=== PATIENT | male | born 1995 | race Caucasian/White ===

== ENCOUNTER 2024-11-27 13:20 | Outpatient (AMB) | payer OTHER, SELFPAY ==
--- NOTE | 2024-11-27 13:21 | A.OFFVIS_ITS ---
Intake Visit Reasons: RLQ pain Intake Note: Patient referred by pcp Dr. Aguilar for RLQ pain. Present for 1m Patient c/o: denies nausea, vomiting, diarrhea. On and off pain. ABD CT: 10-13-2024 Truck Jumper Required: No HPI Comments Details: Patient presents for evaluation of a 1 month history of right lower quadrant abdominal wall pain he does strenuous activities and thinks this aggravates his symptoms. He is otherwise tolerating a diet. He is having regular bowel habits. 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 No other GI issues or complaints. Patient was found to have a CT scan was essentially demonstrated an umbilical hernia which is not the site of his symptoms and otherwise within normal limits. Chart was reviewed and patient evaluated [facility] Medical History (Updated 11/24/24 @ 11:37 by DEE Kaur) Migraine Androgenic alopecia Asthma Physical Exam GI Other: Patient was examined both supine and standing with Valsalva. Bilateral groin exam negative. Both testicles intrascrotal. Patient was a small right groin incision were is an infant he had undescended testicle repaired. No evidence of any inguinal hernias. Small reducible umbilical hernia. Corpulent abdomen. No evidence of any guarding, rebound, or rigidity. Assessment & Plan Assessment & Plan (1) Abdominal wall pain in right lower quadrant: Code(s): R10.31 - Right lower quadrant pain Category: Surgical Plan At present, patient was reassured that no obvious surgical pathology was demonstrated. CT scan and clinically no obvious hernias demonstrated. The patient most probably has a muscle strain or pull. Suggestions regarding management including Tylenol or Motrin, ice or heat, avoiding any aggravating activities, and patient will otherwise follow-up as needed. All questions answered. Coding Level of Care Code New Pt Level 4 (63060) Diagnoses Abdominal wall pain in right lower quadrant R10.31
--- OUTSIDE RECORDS SUMMARY | 2024-11-27 15:04 | XMS_ITS | Clinical Summary ---
Author Organization [address] Address [address] [place] [phone] Phone Care Team Providers Care Cutting Pressman Name Role Phone MarcusHerman arredondo Primary Care Provider [phone] Allergies No known active allergies Encounters Date Type Department Care Team Description 10/13/2024 1:40 PM EST - 10/13/2024 11:59 PM EST Hospital Encounter [facility] CT Scan [address] [place] [address] Right lower quadrant pain; Frequency of micturition Discharge Disposition: Home or Self Care from Last 3 Months Social History Tobacco Use Types Packs/Day Years Used Date Smoking Tobacco: Never Assessed Sex and Gender Information Value Date Recorded Sex Assigned at Not on file Legal Sex Male 7:10 PM EST Gender Identity Not on file Sexual Orientation Not on file Plan of Treatment Health Maintenance Due Date Last Done Comments DTaP,Tdap,and Td Vaccines (1 - Tdap) 2015 Hepatitis B Vaccines (1 of 3 - 19+ 3-dose series) 2015 Pneumococcal Vaccine: Pediat rics (0 to 5 Years) and At-Risk Patients (6 to 64 Years) (1 of 2 - PCV) 2015 COVID-19 Vaccine ( - 2023-2 5 season) 2024 Influenza Vaccine (#1) 2024 Depression Screening 10/09/2024 HIV Screening 10/09/2024 Hepatitis C Screening 10/09/2024 Social Influencers of Health Screening 10/09/2024 Cholesterol Screening (Lipid Panel) 10/09/2029 10/09/2024 HIB Vaccines Aged Out No longer eligi ble based on patient's age to complete this topic HPV Vaccines Aged Out No longer eligi ble based on patient's age to complete this topic Hepatitis A Vaccines Aged Out No long er eligible based on patient's age to complete this topic IPV Vaccines Aged Out No longer eligi ble based on patient's age to complete this topic MMR Vaccines Aged Out No longer eligi ble based on patient's age to complete this topic Meningococcal ACWY Vaccine Aged Out N o longer eligible based on patient's age to complete this topic Meningococcal B Vacine Aged Out No lo nger eligible based on patient's age to complete this topic RSV Immunization Patients Un gino 20 months Aged Out No longer eligible b ased on patient's age to complete this topic Varicella Vaccines Aged Out No longer eligible based on patient's age to complete this topic Procedures Procedure Name Priority Date/Time Associated Diagnosis Comments COMPREHENSIVE METABOLIC PANEL Routine 11/16/2024 2:17 PM EST Elevated LFTs CT ABDOMEN PELVIS W CONTRAST STAT 10/13/2024 1:53 PM EST Right lower quadrant pain Frequency of micturition URINALYSIS WITH REFLEX MICROSCOPIC Routine 10/09/2024 10:46 AM EST Urinary frequency Screening for thyroid disorder Screening for ischemic heart disease Impaired fasting glucose CBC WITH AUTO DIFFERENTIAL Routine 10/09/2024 10:46 AM EST Urinary frequency Screening for thyroid disorder Screening for ischemic heart disease Impaired fasting glucose URINALYSIS WITH REFLEX MICROSCOPIC Routine 10/09/2024 10:46 AM EST Urinary frequency Screening for thyroid disorder Screening for ischemic heart disease Impaired fasting glucose HEMOGLOBIN A1C Routine 10/09/2024 10:46 AM EST Urinary frequency Screening for thyroid disorder Screening for ischemic heart disease Impaired fasting glucose COMPREHENSIVE METABOLIC PANEL Routine 10/09/2024 10:46 AM EST Urinary frequency Screening for thyroid disorder Screening for ischemic heart disease Impaired fasting glucose CBC AND DIFFERENTIAL Routine 10/09/2024 10:46 AM EST Urinary frequency Screening for thyroid disorder Screening for ischemic heart disease Impaired fasting glucose THYROID STIMULATING HORMONE Routine 10/09/2024 10:46 AM EST Urinary frequency Screening for thyroid disorder Screening for ischemic heart disease Impaired fasting glucose LIPID PANEL WITH REFLEX TO DIRECT LDL Routine 10/09/2024 10:46 AM EST Urinary frequency Screening for thyroid disorder Screening for ischemic heart disease Impaired fasting glucose CHLAMYDIA TRACHOMATIS AND NEISSERIA GONORRHOEAE PCR Routine 10/09/2024 10:46 AM EST Urinary frequency Screening for thyroid disorder Screening for ischemic heart disease Impaired fasting glucose CULTURE URINE Routine 10/09/2024 10:46 AM EST Urinary frequency Screening for thyroid disorder Screening for ischemic heart disease Impaired fasting glucose from Last 3 Months Results * (ABNORMAL) Comprehensive metabolic panel (11/16/2024 2:17 PM EST) Only the most recent of2 resultswithin the time period is included. Sodium 139 133 - 145 mmol/L LAB CHEMISTRY METHOD 11/16/2024 8:03 PM [facility] Potassium 4.1 3.5 - 5.5 mmol/L LAB CHEMISTRY METHOD 11/16/2024 8:03 PM [facility] Chloride 106 96 - 110 mmol/L LAB CHEMISTRY METHOD 11/16/2024 8:03 PM [facility] CO2 25 21 - 32 mmol/L LAB CHEMISTRY METHOD 11/16/2024 8:03 PM [facility] Anion Gap 8 3 - 11 LAB CHEMISTRY METHOD 11/16/2024 8:03 PM [facility] Glucose 94 70 - 100 mg/dL LAB CHEMISTRY METHOD 11/16/2024 8:03 PM [facility] BUN 15 5 - 25 mg/dL LAB CHEMISTRY METHOD 11/16/2024 8:03 PM [facility] Creatinine 1.11 0.70 - 1.30 mg/dL LAB CHEMISTRY METHOD 11/16/2024 8:03 PM [facility] eGFR 93 >=60 mL/min/1. 73m2 LAB CHEMISTRY METHOD 11/16/2024 8:03 PM [facility] Comment:Calculation based on the??Chronic Kidney Disease Epidemiology Collaboration (CKD-EPI) equation refit??without adjustment for race. BUN/Creatinine Ratio 13.5 LAB CHEMISTRY METHOD 11/16/2024 8:03 PM [facility] Calcium 9.7 8.5 - 10.5 mg/dL LAB CHEMISTRY METHOD 11/16/2024 8:03 PM [facility] AST (SGOT) 29 10 - 42 unit/L LAB CHEMISTRY METHOD 11/16/2024 8:03 PM [facility] ALT (SGPT) 63(H) 10 - 60 unit/L LAB CHEMISTRY METHOD 11/16/2024 8:03 PM [facility] Alkaline Phosphatase 84 42 - 121 unit/L LAB CHEMISTRY METHOD 11/16/2024 8:03 PM [facility] Total Protein 7.8 6.0 - 8.0 g/dL LAB CHEMISTRY METHOD 11/16/2024 8:03 PM [facility] Albumin 4.2 3.2 - 5.0 g/dL LAB CHEMISTRY METHOD 11/16/2024 8:03 PM [facility] Total Bilirubin 0.4 0.0 - 1.4 mg/dL LAB CHEMISTRY METHOD 11/16/2024 8:03 PM [facility] Blood Venous blood specimen / Unknown Venipuncture / Unknown 11/16/2024 2:17 PM EST 11/16/2024 2:17 PM EST us Karena Lan [employer] LAB BLOOD ORDERABLES Fi nal Result [facility] [address] [place] [address], [place] [phone] * CT Abdomen Pelvis w Contrast (10/13/2024 1:53 PM EST) Anatomical Region Laterality Modality Body Computed Tomogra phy 10/13/2024 2:17 PM EST Impressions 10/13/2024 2:21 PM EST 1. ??Normal appendix. ??No acute findings in the abdomen and pelvis. 2. ??Hepatic steatosis. -------- FINAL REPORT -------- Dictated By: Jaime Gilbert Dictated Date: 10/13/2024 14:17 ET Assigned Physician: Jaime Gilbert Reviewed and Electronically Signed By: Jaime Gilbert Signed Date: 10/13/2024 14:21 ET Workstation ID: [id number] Transcribed By: Self Edit Transcribed Date: 10/13/2024 14:17 ET Narrative 10/13/2024 2:21 PM EST PROCEDURE: Contrast enhanced CT of the abdomen and pelvis. ?? HISTORY: RLQ PAIN R/O APPENDICITIS. COMPARISON: TECHNIQUE: Contrast-enhanced CT of the abdomen and pelvis with coronal and sagittal reformats. IV contrast dose: 90 mL ISOVUE-370. Dose length product: ??2319 mGy-cm. FINDINGS: Lung bases: Calcified granuloma in the lateral periphery of the right lower lobe. Cardiac: Normal. Liver: Diffusely low in attenuation consistent with steatosis. ??There is sparing along the gallbladder fossa. ??No focal lesion. ??Portal veins are patent. Biliary: Normal gallbladder and biliary tree. Pancreas: Normal. Spleen: Normal. Adrenal glands: Normal. Kidneys: Normal. ??Normal appearance of the ureters. Retroperitoneum: No mass or adenopathy. Abdominal vasculature: Minimal atherosclerotic calcification. Bowel/mesentery: No obstruction or adenopathy. ??No mass or ascites. ??Normal appendix. Abdominal wall: Minimal fat-containing paraumbilical hernia.. Pelvic nodes: No adenopathy. Pelvic organs: Normal. Bones: Mild degenerative changes of the spine. Procedure Note Jaime Gilbert MD - 10/13/2024 PROCEDURE: Contrast enhanced CT of the abdomen and pelvis. HISTORY: RLQ PAIN R/O APPENDICITIS. COMPARISON: TECHNIQUE: Contrast-enhanced CT of the abdomen and pelvis with coronal andsagittal reformats. IV contrast dose: 90 mL ISOVUE-370. Dose length product: 2319 mGy-cm. FINDINGS: Lung bases: Calcified granuloma in the lateral periphery of the rightlower lobe. Cardiac: Normal. Liver: Diffusely low in attenuation consistent with steatosis. There issparing along the gallbladder fossa. No focal lesion. Portal veins arepatent. Biliary: Normal gallbladder and biliary tree. Pancreas: Normal. Spleen: Normal. Adrenal glands: Normal. Kidneys: Normal. Normal appearance of the ureters. Retroperitoneum: No mass or adenopathy. Abdominal vasculature: Minimal atherosclerotic calcification. Bowel/mesentery: No obstruction or adenopathy. No mass or ascites.Normal appendix. Abdominal wall: Minimal fat-containing paraumbilical hernia.. Pelvic nodes: No adenopathy. Pelvic organs: Normal. Bones: Mild degenerative changes of the spine. IMPRESSION: 1. Normal appendix. No acute findings in the abdomen and pelvis. 2. Hepatic steatosis. -------- FINAL REPORT -------- Dictated By: Jaime Gilbert Dictated Date: 10/13/2024 14:17 ET Assigned Physician: Jaime Gilbert Reviewed and Electronically Signed By: Jaime Gilbert Signed Date: 10/13/2024 14:21 ET Workstation ID: [id number] Transcribed By: Self Edit Transcribed Date: 10/13/2024 14:17 ET [facility] CT PROCEDURES Final Resul t * Urinalysis with reflex microscopic (10/09/2024 10:46 AM EST) Specific [place] Urine 1.021 1.003 - 1.030 LAB URINALYSIS - AUTOMATED METHOD 10/09/2024 3:06 PM [facility] pH, Urine 6.0 5.0 - 8.0 pH LAB URINALYSIS - AUTOMATED METHOD 10/09/2024 3:06 PM [facility] Leukocytes, Urine Negative Negative LAB URINALYSIS - AUTOMATED METHOD 10/09/2024 3:06 PM [facility] Nitrite, Urine Negative Negative LAB URINALYSIS - AUTOMATED METHOD 10/09/2024 3:06 PM [facility] Protein, Urine Negative <=Trace mg/dL LAB URINALYSIS - AUTOMATED METHOD 10/09/2024 3:06 PM [facility] Glucose, Urine Negative Negative mg/dL LAB URINALYSIS - AUTOMATED METHOD 10/09/2024 3:06 PM [facility] Ketones, Urine Negative Negative mg/dL LAB URINALYSIS - AUTOMATED METHOD 10/09/2024 3:06 PM [facility] Urobilinogen, Urine 0.2 0.2 - 1.0 mg/dL LAB URINALYSIS - AUTOMATED METHOD 10/09/2024 3:06 PM [facility] Bilirubin, Urine Negative Negative LAB URINALYSIS - AUTOMATED METHOD 10/09/2024 3:06 PM [facility] Blood, Urine Negative Negative LAB URINALYSIS - AUTOMATED METHOD 10/09/2024 3:06 PM [facility] Urine Urine specimen obtained by clean catch procedure / Unknown Non-blood Collection / Unknown 10/09/2024 10:46 AM EST 10/09/2024 10:46 AM EST Karena Lan [employer] LAB URINE ORDERABLES Fi nal Result [facility] [address] [place] [address], * (ABNORMAL) Lipid panel with reflex to direct LDL (10/09/2024 10:46 AM EST) Cholesterol 241(H) 0 - 200 mg/dL LAB CHEMISTRY METHOD 10/09/2024 4:25 PM [facility] Triglycerides 197(H) 0 - 150 mg/dL LAB CHEMISTRY METHOD 10/09/2024 4:25 PM [facility] HDL 43 >=40 mg/dL LAB CHEMISTRY METHOD 10/09/2024 4:25 PM [facility] LDL Calculated 159(H) 0 - 100 mg/dL LAB CHEMISTRY METHOD 10/09/2024 4:25 PM EST [facility] VLDL Cholesterol Stan 39.4 mg/dL LAB CHEMISTRY METHOD 10/09/2024 4:25 PM [facility] Non HDL Chol. (LDL+VLDL) 198(H) <145 mg/dL LAB CHEMISTRY METHOD 10/09/2024 4:25 PM EST [facility] Chol/HDL Ratio 5.6(H) 0.0 - 4.4 LAB CHEMISTRY METHOD 10/09/2024 4:25 PM EST [facility] Blood Venous blood specimen / Unknown Venipuncture / Unknown 10/09/2024 10:46 AM EST 10/09/2024 10:46 AM EST Karena Lan NP LAB BLOOD ORDERABLES nal Result [facility] [address] [place] [address], [place] [phone] * CBC auto differential (10/09/2024 10:46 AM EST) WBC 8.5 4.8 - 10.8 K/mcL LAB HEMETOLOGY METHOD 10/09/2024 3:20 PM [facility] RBC 4.90 4.50 - 5.50 M/mcL LAB HEMETOLOGY METHOD 10/09/2024 3:20 PM [facility] Hemoglobin 15.0 13.5 - 17.5 g/dL LAB HEMETOLOGY METHOD 10/09/2024 3:20 PM [facility] Hematocrit 45.3 42.0 - 54.0 % LAB HEMETOLOGY METHOD 10/09/2024 3:20 PM [facility] MCV 92.8 79.0 - 98.0 FL LAB HEMETOLOGY METHOD 10/09/2024 3:20 PM [facility] MCH 30.7 27.0 - 32.0 pcg LAB HEMETOLOGY METHOD 10/09/2024 3:20 PM [facility] MCHC 33.1 32.0 - 37.0 g/dL LAB HEMETOLOGY METHOD 10/09/2024 3:20 PM [facility] RDW 12.3 11.0 - 15.0 % LAB HEMETOLOGY METHOD 10/09/2024 3:20 PM [facility] Platelets 277 130 - 400 K/mcL LAB HEMETOLOGY METHOD 10/09/2024 3:20 PM [facility] MPV 9.7 7.0 - 11.0 FL LAB HEMETOLOGY METHOD 10/09/2024 3:20 PM [facility] NRBC 0.0 <1.0 % LAB HEMETOLOGY METHOD 10/09/2024 3:20 PM [facility] NRBC Absolute 0.00 <0.10 K/mcL LAB HEMETOLOGY METHOD 10/09/2024 3:20 PM [facility] Neutrophils Relative 61.3 % LAB HEMETOLOGY METHOD 10/09/2024 3:20 PM [facility] Lymphocytes Relative 25.5 % LAB HEMETOLOGY METHOD 10/09/2024 3:20 PM [facility] Monocytes Relative 9.7 % LAB HEMETOLOGY METHOD 10/09/2024 3:20 PM [facility] Eosinophils Relative 2.5 % LAB HEMETOLOGY METHOD 10/09/2024 3:20 PM [facility] Basophils Relative 0.6 % LAB HEMETOLOGY METHOD 10/09/2024 3:20 PM [facility] Immature Granulocytes Relative 0.4 % LAB HEMETOLOGY METHOD 10/09/2024 3:20 PM [facility] Neutrophils Absolute 5.21 1.50 - 7.00 K/mcL LAB HEMETOLOGY METHOD 10/09/2024 3:20 PM EST [facility] Lymphocytes Absolute 2.16 1.00 - 5.00 K/mcL LAB HEMETOLOGY METHOD 10/09/2024 3:20 PM [facility] Monocytes Absolute 0.82 0.20 - 1.00 K/mcL LAB HEMETOLOGY METHOD 10/09/2024 3:20 PM EST [facility] Eosinophils Absolute 0.21 0.00 - 0.50 K/mcL LAB HEMETOLOGY METHOD 10/09/2024 3:20 PM EST [facility] Basophils Absolute 0.05 0.00 - 0.20 K/mcL LAB HEMETOLOGY METHOD 10/09/2024 3:20 PM [facility] Immature Granulocytes Absolute 0.03 0.00 - 0.03 K/mcL LAB HEMETOLOGY METHOD 10/09/2024 3:20 PM EST [facility] Blood Venous blood specimen / Unknown Venipuncture / Unknown 10/09/2024 10:46 AM EST 10/09/2024 10:46 AM EST Karena Lan [employer] LAB BLOOD ORDERABLES Fi nal Result [facility] [address] [place] [address], * Chlamydia trachomatis and Neisseria gonorrhoeae molecular study (10/09/2024 10:46 AM EST) Neisseria gonorrhoeae PCR Negative Negative LAB MOLECULAR DIAGNOSTICS METHOD 10/10/2024 8:49 AM EST [facility] Chlamydia trachomatis PCR Negative Negative LAB MOLECULAR DIAGNOSTICS METHOD 10/10/2024 8:49 AM EST [facility] Swab Urine specimen from urethra / Unknown Non-blood Collection / Unknown 10/09/2024 10:46 AM EST 10/09/2024 10:46 AM EST us Karena Lan NP LAB MICROBIOLOGY - GENE RAL ORDERABLES Final Result Performing Organization Address [facility]/ZIP Co de Phone Number [facility] [address] [place] [address], [place] [phone] * Culture urine (10/09/2024 10:46 AM EST) [facility] Culture, Urine No growth 10/10/2024 10:22 AM EST [facility] Urine Urine specimen from urethra / Unknown Non-blood Collection / Unknown 10/09/2024 10:46 AM EST 10/09/2024 10:46 AM EST us Karena Lan NP LAB MICROBIOLOGY - GENE RAL ORDERABLES Final Result Performing Organization Address [facility] Co de Phone Number [facility] [address] [place] [address], [place] [phone] * Thyroid stimulating hormone (10/09/2024 10:46 AM EST) [facility] TSH 1.59 0.40 - 4.00 mcIU/mL LAB CHEMISTRY METHOD 10/09/2024 4:31 PM EST [facility] Blood Venous blood specimen / Unknown Venipuncture / Unknown 10/09/2024 10:46 AM EST 10/09/2024 10:46 AM EST us Karena Lan NP LAB BLOOD ORDERABLES Fi nal Result Performing Organization Address [facility]/ZIP Co de Phone Number [facility] [address] [place] [address], [place] [phone] * Hemoglobin A1c (10/09/2024 10:46 AM EST) [facility] Hemoglobin A1C 6.1 <6.5 % LAB CHEMISTRY METHOD 10/09/2024 6:40 PM EST [facility] Mean Bld Glu Estim. 128 mg/dL LAB CHEMISTRY METHOD 10/09/2024 6:40 PM EST [facility] Blood Venous blood specimen / Unknown Venipuncture / Unknown 10/09/2024 10:46 AM EST 10/09/2024 10:46 AM EST us Karena Lan [employer] LAB BLOOD ORDERABLES Fi nal Result [facility] ([facility]) [facility] [address] [place] [address], from Last 3 Months Insurance [facility] Care Teams Cutting Pressman Relationship Specialty Start Date End Date Herman Aguilar DO [address] [place] [phone] PCP - General Internal Medicine 10/09/24
== END 2024-11-27 13:34 | disposition home or self-care (01) ==
PROVIDERS: PCP Internal Medicine; Visit Provider Surgery
DX: R10.31 Right lower quadrant pain (principal)
CPT/HCPCS: 99204

== ENCOUNTER → 2024-11-27 13:20 | Outpatient (BNVA) | payer OTHER, SELFPAY | PROVIDERS: PCP Internal Medicine; Visit Provider Surgery ==